=== PATIENT | male | born 1955 | race Caucasian/White ===

== ENCOUNTER 2018-09-19 02:38 | Inpatient (IN) | payer OTHER ==
[~2018-09-19] VITALS: Ht 182.9 cm; Wt 80.7 kg
[2018-09-19] MEDS ORDERED: XARELTO10 MG (02:54)
[2018-09-19] MEDS ORDERED: CARDIZEM120 MG (02:54)
--- NOTE | 2018-09-19 02:55 | NUR ---
SE RECIBE PACIENTE ALERTA Y ORIENTADO X3 REFIRIENDO DOLOR EN EL PIE DIXIE DESDE HACE 5 UMANZOR, REFIERE FRACTURA TRATADA EN EL PIE.
--- NOTE | 2018-09-19 03:15 | NUR ---
SE ORIENTA PTE SOBRE TX MEDICO EL CUAL REFIERE ENTENDER.SE UBICA EN CAMA CON BARANDAS ELEVADAS,SE CONECTA A MONITOR CARDIACO,SE REALIZA EKG Y SE MUESTRA A AMINAH ALEXA.SE EXTRAEN MUESTRAS,SE CANALIZA Y SE ADMINISTRA MEDICAMENTO HARSHAD ORDEN MEDICA.
--- NOTE | 2018-09-19 03:35 | NUR ---
PACIENTE CON EDEMA EN AMBAS PIERNAS Y EXUDADO. PACIENTE CON HEMATOMA EN BRAZO L+ Y HERIDA CICATRIZADA EN BRAZO L+. PACIENTE CON BLISTER EN PIERNA IZQUIERDA.
--- NOTE | 2018-09-19 04:24 | NUR ---
SE UBICA PACIENTE EN UNIDAD DE CRITICO DEBIDO A QUE EL PACIENTE ESTA DESATURANDO SATURANDO ENTRE 83-89% MANUAL. DRA. LIU ORDENA UBICAR PACIENTE EN UNIDAD DE CRITICO. SE CONECTA A MONITOR CARDIACO. SE REALIZO EKG AHORA DEBIDO A QUE EL PACIENTE REHUSO ANTES PORQUE TENIA MUCHO DOLOR. LE REALIZAN PLACA ORDENADA POR MD. DRA. LIU ORIENTA A PACIENTE EN NITA DE NECESITAR ENTUBACION SI ACEPTARIA. PACIENTE REFIERE SI DESEA QUE LO ENTUBEN EN NITA DE NECESITARLO. SE MANTIENE BAJO OBSERVACION POR CAMBIOS SIGNIFICATIVOS. PERSONAL DE TERAPIA RESPIRATORIA REALIZA GASES ARTERIALES.
--- NOTE | 2018-09-19 05:41 | NUR ---
SE UBICA PACIENTE EN UNIDAD DE ICU-ER EN CAMA #1,MASCULINO DE 79 ANOS,ALERTA,ORIENTADO X3. EL CULA SE ENCUENTRA DESCANSANDO EN CAMA, BARANDAS ELEVADAS,FRENOS,BYRD DE IDENTIFICACION POR SEGURIDAD. CONECTADO A MONITOR CARDIACO,OXIMETRIA DE PULSO CONTINUA,SATURANDO 95%. ASISTIDO RESPIRATORIAMENTE POR CANULA NASAL 3LTS/MIN. CANALIZACIONES EN BRAZO DIXIE LIMPIAS,SECAS,LIBRES DE SIGNOS DE INFECCION. RECIBIENDO 0.9%NSS 1,000 ML @100ML/HR, LEVOPHED 8MG/250ML DSW @5ML/HR, VANCOMICYN 1GM/500ML @100ML/HR. SE PALPA PIEL TIBIA AL TACTO, ABDOMEN DEPRESIBLE CON PERISTALSIS PRESENTE. SE ORIENTA PACIENTE SOBRE PROCEDIMIENTOS A LLEVAR A CABO, EL MISMO REFIERE COMPRENDER. SE COLECTAN MUESTRAS DE LABORATORIOS Y ADMINISTRAN MEDICAMENTOS HARSHAD ORDEN MEDICA,SIGUIENDO MEDIDAS ASEPTICAS. PACIENTE NO PRESENTA REACCION ADVERSA A MEDICAMENTOS ADMINISTRADOS. BAJO MEDIDAS ESTERILES Y ASEPTICAS SE INSERTA SONDA URINARIA LA CUAL SE MANTIENE A GRAVEDAS, LA MISMA SIN PRESENCIA DE ORINA. SE OBSERVA PIERNA DERECHA CON BLISTERS EL CUAL ESTA SUPURANDO ABUNDANTE EXUDADO CON FETIDEZ,PIERNA HINCHADA CON HEMATOMAS, DEDOS SE OBSERVAN CON NECROSIS. SE MARJ PACIENTE COMODO EN CAMA, BAJO OBSERVACION CHANEL POR CAMBIOS SIGNIFICATIVOS EN CONDICION.
== END 2018-09-28 23:15 | disposition designated cancer center or children's hospital (05) | DRG 682 ==
LOC: ER 02:38 → ICU-2 11:19 → ICU 09-23 19:11
PROVIDERS: ADMIT Internal Medicine
PROC: 30233K1 Transfusion of Nonautologous Frozen Plasma into Peripheral Vein, Percutaneous Approach (ICD-10-PCS; 2018-09-19)
PROC: B54DZZZ Ultrasonography of Bilateral Lower Extremity Veins (ICD-10-PCS; 2018-09-19)
PROC: B44HZZZ Ultrasonography of Bilateral Lower Extremity Arteries (ICD-10-PCS; 2018-09-19)
PROC: B246ZZZ Ultrasonography of Right and Left Heart (ICD-10-PCS; 2018-09-19)
PROC: BW40ZZZ Ultrasonography of Abdomen (ICD-10-PCS; 2018-09-19)
PROC: 06HM33Z Insertion of Infusion Device into Right Femoral Vein, Percutaneous Approach (ICD-10-PCS; principal; 2018-09-20)
PROC: 4A033R1 Measurement of Arterial Saturation, Peripheral, Percutaneous Approach (ICD-10-PCS; 2018-09-20)
PROC: 5A1D70Z Performance of Urinary Filtration, Intermittent, Less than 6 Hours Per Day (ICD-10-PCS; 2018-09-20)
PROC: 5A1D70Z Performance of Urinary Filtration, Intermittent, Less than 6 Hours Per Day (ICD-10-PCS; 2018-09-21)
PROC: 5A1D70Z Performance of Urinary Filtration, Intermittent, Less than 6 Hours Per Day (ICD-10-PCS; 2018-09-22)
PROC: BW2GZZZ Computerized Tomography (CT Scan) of Pelvic Region (ICD-10-PCS; 2018-09-23)
PROC: BQ2SZZZ Computerized Tomography (CT Scan) of Left Lower Extremity (ICD-10-PCS; 2018-09-23)
PROC: 5A1D70Z Performance of Urinary Filtration, Intermittent, Less than 6 Hours Per Day (ICD-10-PCS; 2018-09-23)
PROC: BQ2 Imaging, Non-Axial Lower Bones, Computerized Tomography (CT Scan) (ICD-10-PCS; 2018-09-23)
PROC: BQ2SZZZ Computerized Tomography (CT Scan) of Left Lower Extremity (ICD-10-PCS; 2018-09-25)
PROC: BQ2SYZZ Computerized Tomography (CT Scan) of Left Lower Extremity using Other Contrast (ICD-10-PCS; 2018-09-25)
PROC: 5A1D70Z Performance of Urinary Filtration, Intermittent, Less than 6 Hours Per Day (ICD-10-PCS; 2018-09-25)
PROC: 5A1D70Z Performance of Urinary Filtration, Intermittent, Less than 6 Hours Per Day (ICD-10-PCS; 2018-09-26)
PROC: 5A1D70Z Performance of Urinary Filtration, Intermittent, Less than 6 Hours Per Day (ICD-10-PCS; 2018-09-27)
DX: I13.11 Hypertensive heart and chronic kidney disease without heart failure, with stage 5 chronic kidney disease, or end stage renal disease (principal); N18.6 End stage renal disease; D65 Disseminated intravascular coagulation [defibrination syndrome]; R65.21 Severe sepsis with septic shock; L03.116 Cellulitis of left lower limb; D68.8 Other specified coagulation defects; N17.8 Other acute kidney failure; Z99.2 Dependence on renal dialysis; I48.2 Chronic atrial fibrillation; Z79.01 Long term (current) use of anticoagulants; I73.89 Other specified peripheral vascular diseases; D69.49 Other primary thrombocytopenia; I07.1 Rheumatic tricuspid insufficiency; I34.0 Nonrheumatic mitral (valve) insufficiency; I27.29 Other secondary pulmonary hypertension